=== PATIENT | male | born 1945 | race Caucasian/White ===

== ENCOUNTER 2019-02-01 15:07 | Emergency (ER) | payer MEDICARE, MEDICAID ==
[~2019-02-01] VITALS: Ht 172.7 cm; Wt 87.1 kg
[~2019-02-01 15:07] MED LIST: UNABLE TO RECALL MED
[2019-02-01 15:12] VITALS: BP 110/56
[2019-02-01] MEDS ORDERED: [UNRECOGNIZED DRUG - OTHER] PO (15:25)
[2019-02-01] MEDS ORDERED: GEMF600T5 PO (15:25)
[2019-02-01] MEDS ORDERED: LINA5TAB PO (15:25)
[2019-02-01] MEDS ORDERED: METF-440 PO (15:25)
[2019-02-01] MEDS ORDERED: METO-356 PO (15:25)
[2019-02-01] MEDS ORDERED: LOSA25TA27 PO (15:25)
[2019-02-01] MEDS ORDERED: RANO500T3 PO (15:25)
[2019-02-01] MEDS ORDERED: RANO500T5 PO (15:25)
[2019-02-01] MEDS ORDERED: GABA-532 PO (15:25)
== END 2019-02-01 15:38 | disposition home or self-care (01) ==
LOC: ER 15:11
DX: D17.22 Benign lipomatous neoplasm of skin and subcutaneous tissue of left arm (principal); I10 Essential (primary) hypertension; E11.9 Type 2 diabetes mellitus without complications; E78.5 Hyperlipidemia, unspecified; E78.00 Pure hypercholesterolemia, unspecified

== ENCOUNTER 2020-06-23 14:37 | Emergency (ER) | payer MEDICARE, OTHER ==
[~2020-06-23] VITALS: Ht 172.7 cm; Wt 80.7 kg
[~2020-06-23 14:37] MED LIST changes: +GABA-532 PO; +GEMF600T90 PO; +LINA5TAB PO; +LOSA25TA27 PO; +METF-440 PO; +METO25TA4 PO; +RANO500T3 PO; +RANO500T6 PO; -UNABLE TO RECALL MED; +[UNRECOGNIZED DRUG - OTHER] PO
[2020-06-23] MEDS ORDERED: XTANDI PO (14:44)
[2020-06-23] MEDS ORDERED: ROSU40TA23 PO (14:44)
[2020-06-23 15:03] VITALS: BP 131/84
[2020-06-23] MEDS ORDERED: FLUORESCEIN SODIUM OPHTH 1 EA STRIP ONE (15:30)
[2020-06-23] MEDS ORDERED: POLY10DR OP (15:58)
== END 2020-06-23 16:48 | disposition home or self-care (01) ==
LOC: ER 14:40
DX: H11.32 Conjunctival hemorrhage, left eye (principal); I10 Essential (primary) hypertension; E78.5 Hyperlipidemia, unspecified; E11.9 Type 2 diabetes mellitus without complications; E78.00 Pure hypercholesterolemia, unspecified; Z79.84 Long term (current) use of oral hypoglycemic drugs; Z79.899 Other long term (current) drug therapy
CPT/HCPCS: 99283; J7050

== ENCOUNTER 2020-07-19 11:03 | Inpatient (IN) | payer MEDICARE, OTHER ==
[~2020-07-19] VITALS: Ht 172.7 cm; Wt 80.7 kg
[~2020-07-19 11:03] MED LIST changes: +POLY10DR OP; +ROSU40TA23 PO; +XTANDI PO; -[UNRECOGNIZED DRUG - OTHER] PO
--- NOTE | 2020-07-19 11:15 | NUR ---
DENTON FROM HOME C/O L HIP PAIN S/P GLF LAST FRIDAY. PT AAOX3, VSS. RR EVEN & UNLABORED. DENIES CP, SOB, DIZZINESS, N/V, MARSHALL AT THIS TIME. PT SEEN & EVAL'D BY DR. MARIE. WILL CONT TO MONITOR.
--- NOTE | 2020-07-19 11:30 | NUR ---
RADIOLOGY AT BEDSIDE FOR L HIP/L FEMUR XRAY.
[2020-07-19 13:22] LABS: BASOPHILS # (AUTO) 0.1 /CMM (0.0-0.2); BASOPHILS % (AUTO) 0.8 % (0.0-2.0); EOSINOPHILS % (AUTO) 1.7 % (0.0-6.0); HEMATOCRIT 38 % (39-51); HEMOGLOBIN 12.9 g/dL (13.5-17.5); LYMPHOCYTES # (AUTO) 0.4 /CMM (0.8-4.8); LYMPHOCYTES % (AUTO) 5.4 % (20.0-44.0); MEAN CORPUSCULAR HGB CONC 34 g/dl (31.0-36.0); MEAN CORPUSCULAR VOLUME 86 fL (80-96); MONOCYTES # (AUTO) 0.5 /CMM (0.1-1.30); MONOCYTES % (AUTO) 6.4 % (2.0-12.0); NEUTROPHILS # (AUTO) 7.1 /CMM (1.8-8.9); NEUTROPHILS % (AUTO) 85.7 % (43.0-81.0); PLATELET COUNT (AUTO) 217 /CMM (150-450); RED BLOOD CELL COUNT(AUTO) 4.45 MIL/uL (4.5-6.0); WHITE BLOOD COUNT (AUTO) 8.3 K/uL (4.3-11.0)
[2020-07-19 13:35] LABS: CALCIUM, SERUM 9.6 mg/dL (8.5-10.1); CARBON DIOXIDE 25 mmol/L (21-32); CHLORIDE 107 mmol/L (98-107); CREATININE 1.9 mg/dL (0.6-1.3); GLUCOSE 95 mg/dL (74-106); POTASSIUM 4.1 mmol/L (3.5-5.1); SODIUM SERUM 144 mmol/L (136-145); UREA NITROGEN, BLOOD 31 mg/dL (7-18)
[2020-07-19 13:40] LABS: ALANINE AMINOTRANSFERASE 21 U/L (12-78); ALKALINE PHOSPHATASE 65 U/L (46-116); ASPARTATE AMINOTRANSFERASE 34 U/L (15-37); BILIRUBIN,TOTAL 1.2 mg/dL (0.2-1.0); TOTAL PROTEIN, SERUM 7.4 g/dL (6.4-8.2)
[2020-07-19] MEDS ORDERED: ONDANSETRON HCL/PF 4 MG/2 ML VIAL ONE (13:52)
[2020-07-19] MEDS ORDERED: MORPHINE SULFATE INJ 2 MG/ML DISP.SYRIN ONE (13:53)
[2020-07-19] MEDS ORDERED: MORPHINE SULFATE INJ 2 MG/ML DISP.SYRIN IV ONE (14:00)
[2020-07-19] MEDS ORDERED: ONDANSETRON HCL/PF 4 MG/2 ML VIAL IV ONE (14:00)
--- NOTE | 2020-07-19 14:04 | NUR ---
RADIOLOGY AT BEDSIDE FOR CHEST XRAY.
--- NOTE | 2020-07-19 14:52 | NUR ---
paged ortho dr chatterjee. 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
[2020-07-19] MEDS ORDERED: MAGNESIUM HYDROXIDE 30 ML UDC PO PRN (15:00)
[2020-07-19] MEDS ORDERED: ONDANSETRON HCL/PF 4 MG/2 ML VIAL IVP PRN (15:00)
[2020-07-19] MEDS ORDERED: Z GUARD REMEDY 2 OZ OINT TP PRN (15:00)
[2020-07-19] MEDS ORDERED: ACETAMINOPHEN 325 MG TABLET PO PRN (15:00)
[2020-07-19] MEDS ORDERED: HYDROCODONE/APAP 5/325MG TABLET PO PRN (15:00)
[2020-07-19] MEDS ORDERED: ZOLPIDEM TARTRATE 5 MG TABLET PO PRN (15:00)
[2020-07-19] MEDS ORDERED: MAG HYDROX/AL HYDROX/SIMETH 30 ML UDC PO PRN (15:00)
[2020-07-19] MEDS ORDERED: MORPHINE SULFATE INJ 2 MG/ML DISP.SYRIN IV PRN (15:00)
[2020-07-19] MEDS ORDERED: IV 1/2NS 1000 ML 1,000 ML IV PRN (15:00)
--- NOTE | 2020-07-19 15:03 | NUR ---
PT. STATED HE RECEIVED A SECOND SHOT OF COVID VACCINE ON July
--- NOTE | 2020-07-19 15:57 | NUR ---
CALLED DR. ESCOBAR FOR ORTHO CONSULT, SPOKE TO DR. LARSON.
--- NOTE | 2020-07-19 16:14 | NUR ---
REPORT GIVEN TO ELLA CONLEY FOR SARAH.
--- NOTE | 2020-07-19 16:30 | NUR ---
MS ADMITTING NOTES Received report from ER at 1615. Patient awake, A/Ox4 when received. Patient has a L AC IV. Patient oriented to Anupam adam RN, unit, room, bed, and unit policies regarding patient care and visiting hours. Safety measures in place: call light within reach, bed in lowest position, bed locked, and encouraged patient to call if they need something. All questions and concerns addressed, patient verbalized understanding.
[2020-07-19] MEDS: RANOLAZINE 500 MG TAB.ER.12H PO SCH (17:44)
--- NOTE | 2020-07-19 19:00 | NUR ---
MS CHANGE OF SHIFT NOTES Patient in bed resting, A/O x4. Patient no c/o of pain, discomfort, distress. Breathing unlabored and even. 1/2 NS running at 75 mL/hr. Safety measures in place, call light within reach, bed locked and in lowest position, encouraged patient to call for help and do not get up by himself. Endorsed to overnight cashier nurse.
[2020-07-19] MEDS: XTANDI 40 MG PO SCH (19:28)
--- NOTE | 2020-07-19 19:40 | NUR ---
MS RN NOTES RECEIVED ON BED A/O X4, NO SOB,S/P FALL AND SUSTAINED LEFT HIP FRACTURE,PAIN TOLERABLE AT THE MOMENT,AWAITING SURGICAL INTERVENTION.IVF 1/2 NS AT 75ML/HR RATE,SITE PATENT ON LEFT AC.CALL LIGHT IN REACH,NEEDS ANTICIPATED.
[2020-07-19 20:00] VITALS: BP 125/75
[2020-07-20 06:28] LABS: BASOPHILS % (AUTO) 0.5 % (0.0-2.0); EOSINOPHILS % (AUTO) 2.1 % (0.0-6.0); HEMATOCRIT 34 % (39-51); HEMOGLOBIN 11.6 g/dL (13.5-17.5); LYMPHOCYTES # (AUTO) 0.4 /CMM (0.8-4.8); MEAN CORPUSCULAR HGB CONC 35 g/dl (31.0-36.0); MEAN CORPUSCULAR VOLUME 84 fL (80-96); MONOCYTES # (AUTO) 0.6 /CMM (0.1-1.30); MONOCYTES % (AUTO) 7.1 % (2.0-12.0); NEUTROPHILS # (AUTO) 7.6 /CMM (1.8-8.9); NEUTROPHILS % (AUTO) 85.3 % (43.0-81.0); PLATELET COUNT (AUTO) 201 /CMM (150-450); RED BLOOD CELL COUNT(AUTO) 4.02 MIL/uL (4.5-6.0); WHITE BLOOD COUNT (AUTO) 8.9 K/uL (4.3-11.0)
[2020-07-20 06:56] LABS: ALANINE AMINOTRANSFERASE 11 U/L (12-78); ALBUMIN 3.2 g/dL (3.4-5.0); ALKALINE PHOSPHATASE 57 U/L (46-116); ASPARTATE AMINOTRANSFERASE 20 U/L (15-37); BILIRUBIN,TOTAL 0.9 mg/dL (0.2-1.0); CALCIUM, SERUM 8.8 mg/dL (8.5-10.1); CARBON DIOXIDE 23 mmol/L (21-32); CHLORIDE 106 mmol/L (98-107); CHOLESTEROL 105 mg/dL (<200); CREATININE 1.7 mg/dL (0.6-1.3); GLUCOSE 111 mg/dL (74-106); HDL CHOLESTEROL 62 mg/dL (40-60); LDL 31 mg/dL (0-99); MAGNESIUM 2.2 mg/dL (1.8-2.4); PHOSPHORUS 3.4 mg/dL (2.5-4.9); POTASSIUM 4.2 mmol/L (3.5-5.1); SODIUM SERUM 141 mmol/L (136-145); TOTAL PROTEIN, SERUM 6.4 g/dL (6.4-8.2); TRIGLYCERIDES 82 mg/dL (30-150); UREA NITROGEN, BLOOD 33 mg/dL (7-18)
--- NOTE | 2020-07-20 07:25 | NUR ---
MS RN OPENING NOTE RECEIVED PATIENT IN BED. A/O X4. ON ROOM AIR, NO SOB NOTED. IN NO APPARENT DISTRESS. PT IS ON NPO FOR UPCOMING PROCEDURE. CONSENT SIGNED. IV ACCESS ON L AC, INTACT, 1/2 NS RUNNING @ 75 ML/HR. SAFETY MEASURES MAINTAINED. BED IN LOWEST POSITION, BRAKES LOCKED. SIDE RAILS UP X2. CALL LIGHT WITHIN REACH. WILL CONTINUE PLAN OF CARE.
--- NOTE | 2020-07-20 07:30 | NUR ---
MS RN NOTES ASLEEP THRU OUT SHIFT,PAIN TOLERABLE,DIDNT ASKED FOR PAIN MEDICINE.NPO POST MIDNIGHT FOR FOR LEFT HIP ARTHROPLASTY AT 1500 SCHEDULED.CONSENT SIGNED BY PATIENT,CALL LIGHT IN REACH,NEEDS ATTENDED.ENDORSED TO DAY NURSE ZOIE CONLEY FOR SARAH.
[2020-07-20 08:00] VITALS: BP 162/80
[2020-07-20] MEDS: ATORVASTATIN 10 MG TABLET PO SCH (08:13)
[2020-07-20] MEDS: LOSARTAN POTASSIUM 25 MG TABLET PO SCH (08:13)
[2020-07-20] MEDS: LINAGLIPTIN 5 MG TABLET PO SCH (08:14)
[2020-07-20] MEDS: GEMFIBROZIL 600 MG TABLET PO SCH (08:14)
[2020-07-20] MEDS: METOPROLOL SUCCINATE 25 MG TAB.SR.24H PO SCH (08:14)
[2020-07-20] MEDS: GABAPENTIN 100 MG CAPSULE PO SCH (08:14)
[2020-07-20] MEDS: RANOLAZINE 500 MG TAB.ER.12H PO SCH ×2 (08:14→18:48)
--- NOTE | 2020-07-20 15:15 | NUR ---
MS RN NOTE PATIENT WAS BROUGHT DOWN TO OR FOR SURGERY
[2020-07-20] MEDS ORDERED: ROCURONIUM BROMIDE 50 MG/5 ML ONE (15:22)
[2020-07-20] MEDS ORDERED: FENTANYL PF 100MCG/2ML AMPUL ONE (15:22)
[2020-07-20] MEDS ORDERED: BACITRACIN 50000 UNITS/VIAL ONE (15:25)
[2020-07-20] MEDS ORDERED: ANESTHESIA TRAY IN PYXIS 1 EA TRAY MC ONE (15:25)
[2020-07-20] MEDS ORDERED: BUPIVACAINE 0.25% 75 MG/30 ML VIAL ONE (15:25)
[2020-07-20] MEDS ORDERED: BUPIVACAINE 0.5 % PF 150 MG/30 ML VIAL ONE (15:25)
[2020-07-20] MEDS ORDERED: VANCOMYCIN 1 GM VIAL ONE (16:55)
[2020-07-20] MEDS ORDERED: MORPHINE SULFATE INJ 4 MG/ML DISP.SYRIN IV PRN (18:00)
[2020-07-20] MEDS ORDERED: HYDROCODONE/APAP 10/325MG TABLET PO PRN (18:00)
--- NOTE | 2020-07-20 18:34 | NUR ---
MS RN NOTE PATIENT IS BACK FROM SURGERY. RECEIVED POST OP REPORT FROM JERI CAMACHO BP 163/71 ND 68 RR 15 T 98.5 SA02 94% PATIENT DENIES ANY PAIN OR DISCOMFORT AT THIS TIME. 02 NC @ 2 LPM. ABDUCTOR PILLOWS IN BETWEEN LEGS. DR. ESCOBAR ORDERED TO RESUME REGULAR DIET, PT EVAL IN AM, BOTH LEGS SHOULD BE LEVELED, WEIGHT BEARING TOLERATED ON THE LEFT LEG. SAFETY MEASURES MAINTAINED. BED IN LOWEST POSITION, BRAKES LOCKED. SIDE RAILS UP X2. CALL LIGHT WITHIN REACH. WILL ENDORSE CONTINUITY OF CARE TO ONCOMING SHIFT.
[2020-07-20] MEDS: XTANDI 40 MG PO SCH (18:48)
[2020-07-20] MEDS: IV 0.45% NS W/20 MEQ KCL 1L IV PRN (18:53)
[2020-07-20 20:00] VITALS: BP 161/69
--- NOTE | 2020-07-20 20:00 | NUR ---
RN NOTES Received pt. awake on bed, S/P bipolar left hip replacement, with abduction pillow, left hip dressing dry and intact denies pain, no sob, GF/c draining clear yellow urine, call light within reach, siderailsupx2 continue to monitor
[2020-07-20] MEDS: ANCEF 1 GM/50 ML D5W IV SCH (21:00)
[2020-07-21] MEDS: ANCEF 1 GM/50 ML D5W IV SCH ×2 (05:06→13:22)
[2020-07-21] MEDS: IV 0.45% NS W/20 MEQ KCL 1L IV PRN (05:55)
--- NOTE | 2020-07-21 06:41 | NUR ---
RN NOTES awake, morning care rendered, denies pain, no sob, call light within reach, siderailsupx2, pt. needs attended
--- NOTE | 2020-07-21 07:34 | NUR ---
MS RN OPENING NOTES RECEIVED PATIENT IN BED AWAKE, A/O X4. ABLE TO VERBALIZED NEEDS, C/O OF DISCOMFORTS HAVING THE HENNING CATHETER ON, INFORMED HIM THAT WE WILL REMOVED IT TODAY PER MD ORDER. LEFT HIP DRESSING C/D/I. ABDUCTION PILLOW ON LOWER EXTREMITIES IN PLACE. ON ROOM AIR, BREATHING EVEN AND UNLABORED. IV ACCESS ON LAC G#20 INTACT WITH IVF OF 1/2 NS + KCL 20MEQ RUNNING @ 75 ML/HR, NO S/S OF INFILTRATIONS AT SITE NOTED. SAFETY MEASURES IN PLACE: BED IN LOWEST POSITION, BRAKES LOCKED, SIDE RAILS UP X2 AND CALL LIGHT WITHIN REACH. WILL CONTINUE TO MONITOR PT ACCORDINGLY..
[2020-07-21 08:17] VITALS: BP 138/68
[2020-07-21] MEDS: LINAGLIPTIN 5 MG TABLET PO SCH (09:30)
[2020-07-21] MEDS: METOPROLOL SUCCINATE 25 MG TAB.SR.24H PO SCH (09:30)
[2020-07-21] MEDS: GEMFIBROZIL 600 MG TABLET PO SCH (09:30)
[2020-07-21] MEDS: RANOLAZINE 500 MG TAB.ER.12H PO SCH ×2 (09:30→17:15)
[2020-07-21] MEDS: LOSARTAN POTASSIUM 25 MG TABLET PO SCH (09:31)
[2020-07-21] MEDS: GABAPENTIN 100 MG CAPSULE PO SCH (09:32)
[2020-07-21 09:39] LABS: BASOPHILS % (AUTO) 0.4 % (0.0-2.0); EOSINOPHILS % (AUTO) 0.3 % (0.0-6.0); HEMATOCRIT 29 % (39-51); HEMOGLOBIN 10.2 g/dL (13.5-17.5); LYMPHOCYTES # (AUTO) 0.4 /CMM (0.8-4.8); LYMPHOCYTES % (AUTO) 4.3 % (20.0-44.0); MEAN CORPUSCULAR HGB CONC 35 g/dl (31.0-36.0); MEAN CORPUSCULAR VOLUME 84 fL (80-96); MONOCYTES # (AUTO) 0.8 /CMM (0.1-1.30); MONOCYTES % (AUTO) 8.3 % (2.0-12.0); NEUTROPHILS # (AUTO) 8.6 /CMM (1.8-8.9); NEUTROPHILS % (AUTO) 86.7 % (43.0-81.0); PLATELET COUNT (AUTO) 214 /CMM (150-450); RED BLOOD CELL COUNT(AUTO) 3.47 MIL/uL (4.5-6.0); WHITE BLOOD COUNT (AUTO) 9.9 K/uL (4.3-11.0)
--- NOTE | 2020-07-21 09:40 | NUR ---
RN NOTES HENNING CATHETER REMOVED WITH EASED PER MD ORDER. NO HEMATURIA NOTED. 250ML CLEAR YELLOW URINE OUTPUT NOTED. URINAL PROVIDED AND PLACED AT PT'S BEDSIDE. WILL CONTINUE TO MONITOR.
[2020-07-21 09:46] LABS: ALANINE AMINOTRANSFERASE 13 U/L (12-78); ALBUMIN 2.8 g/dL (3.4-5.0); ALKALINE PHOSPHATASE 51 U/L (46-116); ASPARTATE AMINOTRANSFERASE 23 U/L (15-37); BILIRUBIN,TOTAL 0.7 mg/dL (0.2-1.0); CALCIUM, SERUM 8.5 mg/dL (8.5-10.1); CARBON DIOXIDE 26 mmol/L (21-32); CHLORIDE 105 mmol/L (98-107); CREATININE 1.5 mg/dL (0.6-1.3); GLUCOSE 138 mg/dL (74-106); MAGNESIUM 1.9 mg/dL (1.8-2.4); PHOSPHORUS 3.2 mg/dL (2.5-4.9); POTASSIUM 4.3 mmol/L (3.5-5.1); SODIUM SERUM 138 mmol/L (136-145); TOTAL PROTEIN, SERUM 5.8 g/dL (6.4-8.2); UREA NITROGEN, BLOOD 23 mg/dL (7-18)
[2020-07-21] MEDS: ATORVASTATIN 10 MG TABLET PO SCH (09:51)
[2020-07-21] MEDS: ENOXAPARIN SODIUM 40 MG/0.4 ML DISP.SYRIN SQ SCH (09:51)
[2020-07-21 15:53] VITALS: BP 124/65
--- NOTE | 2020-07-21 16:00 | NUR ---
RN NOTES PT NOTED WITH ELEVATED TEMP OF 101.1F, PRN TYLENOL 650MG PO GIVEN AND COOLING MEASURES IMPLEMENTED. WILL CONTINUE TO MONITOR PT.
[2020-07-21] MEDS: XTANDI 40 MG PO SCH (17:15)
--- NOTE | 2020-07-21 18:24 | NUR ---
RN NOTES PT'S LATEST TEMP CHECKED AND WAS 97.9F. WILL CONTINUE TO MONITOR.
--- NOTE | 2020-07-21 18:33 | NUR ---
MS RN CLOSING NOTES PATIENT IN BED AWAKE AND WATCHING TV AT THIS TIME. A/O X4. ABLE TO MAKE NEEDS KNOWN. DRESSING ON LEFT HIP C/D/I. ON ROOM AIR, TOLERATING WELL WITH NO SOB NOTED DURING SHIFT. IV ACCESS ON LAC G#20 INTACT, PATENT AND FLUSHES WELL, NO S/S OF INFILTRATIONS AT SITE NOTED. ALL NEEDS AND CARE ATTENDED WELL. ALL SAFETY MEASURES KEPT IN PLACE: BED IN LOWEST LOCKED POSITION, SIDE RAILS UP X2, CALL LIGHT WITHIN EASY REACH AND BED ALARM ON. WILL ENDORSE SARAH TO BORING MACHINE OPERATOR DOUBLE END NURSE.
[2020-07-21 20:00] VITALS: BP 124/47
--- NOTE | 2020-07-21 20:03 | NUR ---
RN MS opening notes Received Pt from morning nurse. Pt is laying in bed comfortably watching TV. Pt is alert and orientedX4. Respiration is normal. No SOB. No S/S of distress noted. IV site at RAC# 18 is clean, intact, flushes well and SL. L hip dressing is intact, clean and dry. Safety precautions is maintained. Bed at low position, brakes locked, side rails upX2, urinal at the bed side and call light is within reach. Will continue to monitor.
[2020-07-21 21:23] VITALS: BP 129/47
--- NOTE | 2020-07-22 | NUR ---
RN notes Pt refused IV fluid potassium chloride 20 meq in IV 0.45% NS. Explained risks and benefits. Offered several times. Pt keep refusing. Will continue to monitor.
--- NOTE | 2020-07-22 06:45 | NUR ---
RN MS closing notes Pt is resting in bed comfortably. Pt is alert and orientedX4. Respiration is normal. No SOB. No S/S of distress noted. VS is stable. Afebrile. IV site at RAC# 18 is clean, intact, flushes well and SL. L hip dressing is intact, clean and dry. Kept Pt clean, dry and comfortable. All needs met and attended. Safety precautions is maintained. Bed at low position, brakes locked, side rails upX2, urinal at the bed side and call light is within reach. Will endorse to morning nurse for SARAH.
[2020-07-22 08:00] VITALS: BP 153/68
[2020-07-22] MEDS: RANOLAZINE 500 MG TAB.ER.12H PO SCH (09:41)
[2020-07-22] MEDS: GABAPENTIN 100 MG CAPSULE PO SCH (09:41)
[2020-07-22] MEDS: GEMFIBROZIL 600 MG TABLET PO SCH (09:41)
[2020-07-22] MEDS: LINAGLIPTIN 5 MG TABLET PO SCH (09:42)
[2020-07-22] MEDS: LOSARTAN POTASSIUM 25 MG TABLET PO SCH (09:42)
[2020-07-22 09:43] VITALS: BP 153/68
[2020-07-22] MEDS: METOPROLOL SUCCINATE 25 MG TAB.SR.24H PO SCH (09:43)
[2020-07-22] MEDS: ENOXAPARIN SODIUM 40 MG/0.4 ML DISP.SYRIN SQ SCH (09:43)
[2020-07-22] MEDS: ATORVASTATIN 10 MG TABLET PO SCH (09:46)
[2020-07-22] MEDS ORDERED: IV NS 0.9% 1,000 ML IV PRN (10:00)
--- NOTE | 2020-07-22 15:55 | NUR ---
Pt left in stable condition via gurney with paramedics. Vital signs stable, no acute distress noted. Pt with no skin breakdown, surgical incision with c/d/i dressing. Pt given discharge instructions, verbalized understanding. Pt's belongings with pt and medications picked up from pharmacy and given to pt. Pt's IV removed and applied pressure dressing. Report given to JARVIS Juarez from [facility], pt going to Room 325.
== END 2020-07-22 16:00 | DRG 521 ==
LOC: ER 11:10 → MED 16:11
PROVIDERS: ADMIT Internal Medicine; ATTEND Internal Medicine
PROC: 0SRB0JZ Replacement of Left Hip Joint with Synthetic Substitute, Open Approach (ICD-10-PCS; principal; 2020-07-20)
DX: S72.012A Unspecified intracapsular fracture of left femur, initial encounter for closed fracture (principal); N17.0 Acute kidney failure with tubular necrosis; W01.0XXA Fall on same level from slipping, tripping and stumbling without subsequent striking against object, initial encounter; E11.9 Type 2 diabetes mellitus without complications; Y92.009 Unspecified place in unspecified non-institutional (private) residence as the place of occurrence of the external cause; Z85.46 Personal history of malignant neoplasm of prostate; I10 Essential (primary) hypertension; E78.5 Hyperlipidemia, unspecified; E78.00 Pure hypercholesterolemia, unspecified; Z79.84 Long term (current) use of oral hypoglycemic drugs; Z79.899 Other long term (current) drug therapy; I27.20 Pulmonary hypertension, unspecified; N13.9 Obstructive and reflux uropathy, unspecified; M16.10 Unilateral primary osteoarthritis, unspecified hip; M85.80 Other specified disorders of bone density and structure, unspecified site
CPT/HCPCS: 36415; 71045-TC; 73502; 73552; 73700-TC; 76770-TC; 80053-TC; 80061-TC; 82962-TC; 83735-TC; 84100-TC; 84484-TC; 85025-TC; 85610-TC; 85730-TC; 87081-TC; 88305-TC; 88311-TC; 93307-TC; 97110-TC; 97112-TC; 97116-TC; 97530-TC; A4217; A6209; C1776; C9803; G0378; J0690; J1100; J1650; J2270; J2405; J2704; J3010; J3370; J3480; J3490; J7060

== ENCOUNTER 2021-06-02 12:26 | Inpatient (IN) | payer MEDICARE, OTHER ==
[~2021-06-02] VITALS: Ht 175.3 cm; Wt 72.1 kg
[~2021-06-02 12:26] MED LIST changes: -POLY10DR OP; -RANO500T6 PO
--- NOTE | 2021-06-02 12:41 | NUR ---
DENTON FROM HOME, CONFUSION NOTED BY 1 HOUR AGO. HYPERTENSIVE INPATIENT CARE MANAGER RN. THE PATIENT IS ALERT AND ORIENTED X2. THE PATIENT HAS CLEAR SPEECH. DENIES PAIN PAIN. IN ROOM AIR AND DENIES SOB. RESPIRATION REGULAR AND UNLABORED. ATTACHED TO THE MONITOR. WILL CONTINUE TO MONITOR THE PATIENT
--- NOTE | 2021-06-02 12:42 | NUR ---
IV LINE ESTABLISHED BLOOD DRAWN AND SENT TO LAB.
--- NOTE | 2021-06-02 12:45 | NUR ---
AT BEDSIDE FOR EVAL.
[2021-06-02] MEDS ORDERED: hydrALAZINE HCL IV 20 MG VIAL ONE (12:54)
[2021-06-02] MEDS ORDERED: hydrALAZINE HCL IV 20 MG VIAL IV ONE (13:00)
--- NOTE | 2021-06-02 13:00 | NUR ---
THE PATIENT IS TAKEN TO CT [facility]IA [facility]
[2021-06-02 13:08] LABS: BASOPHILS % (AUTO) 0.6 % (0.0-2.0); EOSINOPHILS % (AUTO) 0.5 % (0.0-6.0); HEMATOCRIT 35 % (39-51); HEMOGLOBIN 12.1 g/dL (13.5-17.5); LYMPHOCYTES # (AUTO) 0.5 K/uL (0.8-4.8); LYMPHOCYTES % (AUTO) 8.3 % (20.0-44.0); MEAN CORPUSCULAR HGB CONC 34 g/dl (31.0-36.0); MEAN CORPUSCULAR VOLUME 82 fL (80-96); MONOCYTES # (AUTO) 0.3 K/uL (0.1-1.30); MONOCYTES % (AUTO) 5.1 % (2.0-12.0); NEUTROPHILS # (AUTO) 5.3 K/uL (1.8-8.9); NEUTROPHILS % (AUTO) 85.5 % (43.0-81.0); PLATELET COUNT (AUTO) 289 K/uL (150-450); RED BLOOD CELL COUNT(AUTO) 4.28 MIL/uL (4.5-6.0); WHITE BLOOD COUNT (AUTO) 6.2 K/uL (4.3-11.0)
--- NOTE | 2021-06-02 13:19 | NUR ---
THE PATIENT IS BACK FROM CT VIA [facility]
[2021-06-02 13:26] LABS: CALCIUM, SERUM 8.8 mg/dL (8.5-10.1); CARBON DIOXIDE 28 mmol/L (21-32); CHLORIDE 102 mmol/L (98-107); CREATININE 1.5 mg/dL (0.6-1.3); GLUCOSE 95 mg/dL (74-106); POTASSIUM 2.9 mmol/L (3.5-5.1); SODIUM SERUM 140 mmol/L (136-145); UREA NITROGEN, BLOOD 12 mg/dL (7-18)
--- NOTE | 2021-06-02 13:27 | NUR ---
COVID ANTIGEN SWAB DONE AND SENT TO THE LAB
--- NOTE | 2021-06-02 13:45 | NUR ---
MADE DR TORIBIO AWARE OF BP 215/99 AND HR 76. WAITING FOR ORDERS.
--- NOTE | 2021-06-02 13:51 | NUR ---
PAGED [facility].
--- NOTE | 2021-06-02 13:56 | NUR ---
CALLED NURSING SUP FOR ICU BED.
[2021-06-02] MEDS ORDERED: LABETALOL 20 MG/4 ML VIAL IV ONE (14:00)
[2021-06-02] MEDS ORDERED: ONDANSETRON HCL/PF 4 MG/2 ML VIAL IVP PRN (14:00)
[2021-06-02] MEDS ORDERED: POTASSIUM CHLORIDE 20 MEQ TAB.PRT.SR PO ONE ×2 (14:00→14:27)
[2021-06-02] MEDS ORDERED: MORPHINE SULFATE INJ 2 MG/ML DISP.SYRIN IV PRN (14:00)
[2021-06-02] MEDS ORDERED: DEXTROSE 50%-WATER 50 ML DISP.SYRIN IV PRN (14:00)
[2021-06-02] MEDS ORDERED: ACETAMINOPHEN 325 MG TABLET PO PRN (14:00)
[2021-06-02] MEDS ORDERED: INSULIN REGULAR, HUMAN 100 UNIT/ML 3 ML VIAL SQ PRN (14:00)
[2021-06-02] MEDS ORDERED: NICARDIPINE HCL 40 MG in IV NS 0.9% 184 ML IV PRN (14:00)
[2021-06-02] MEDS ORDERED: *INSULIN REGULAR(HUMULIN R)HUM 100 UNIT/ML VIAL SQ PRN (14:00)
--- NOTE | 2021-06-02 14:03 | NUR ---
URINE COLLECTED AND SENT TO THE LAB
[2021-06-02] MEDS ORDERED: HEPARIN SODIUM, PORCINE 5000 UNITS/1 ML VIAL ONE (14:27)
[2021-06-02] MEDS ORDERED: POTASSIUM CL. PREMIX PERIPHER. 100 ML ONE (14:27)
[2021-06-02 14:34] LABS: BILIRUBIN,URINE NEGATIVE (NEGATIVE); COLOR,URINE YELLOW (YELLOW); LEUKOCYTE ESTERASE ,URINE NEGATIVE (NEGATIVE); NITRITE, URINE NEGATIVE (NEGATIVE); PROTEIN,URINE 100 mg/dl (NEGATIVE); UGLUCOSE NEGATIVE (NEGATIVE); UROBILINOGEN,URINE 0.2 EU/dL (0.2)
[2021-06-02] MEDS: BLOOD SUGAR DIAGNOSTIC 1 EACH STRIP VI SCH ×3 (14:41→22:46)
[2021-06-02] MEDS: POTASSIUM CL. PREMIX PERIPHER. 50 ML IV SCH ×2 (14:50→16:18)
[2021-06-02] MEDS: HEPARIN SODIUM, PORCINE 5000 UNITS/1 ML VIAL SQ SCH ×2 (14:51→21:00)
[2021-06-02 14:59] LABS: BACTERIA,URINE Rare /HPF (None Seen); HYALINE CASTS, URINE 0-2 /LPF (None Seen); RBC,URINE 0-2 /HPF (0-2); SQUAMOUS EPITHELIAL CELL,UR Few /HPF (None Seen); WBC,URINE 0-2 /HPF (0-3)
--- NOTE | 2021-06-02 15:28 | NUR ---
UNABLE TO CONTACT DR STEPHENS SO DR MONTEMAYOR IS MADE AWARE OF CHANGE IN CONDITION.
--- NOTE | 2021-06-02 15:28 | NUR ---
THE PATIENT IS NOTED TO BE ALTERED. NOT RESPONDING TO VERBAL OR TACTILE STIMULI. RESPIRATION REGULAR AND UNLABORED. OXYGEN SATURATION ROOM AIR WNL. CARDENE DRIP INFUSING PER ORDER. DR MONTEMAYOR MADE AWARE.
--- NOTE | 2021-06-02 15:29 | NUR ---
DR STEPHENS MADE AWARE. PER DR STEPHENS TO ASK DR MONTEMAYOR FOR ORDERS.
--- NOTE | 2021-06-02 15:32 | NUR ---
THE PATIENT IS TAKEN TO CT [facility]IA [facility]
--- NOTE | 2021-06-02 15:42 | NUR ---
THE PATIENT IS BACK FROM CT VIA [facility]
--- NOTE | 2021-06-02 15:43 | NUR ---
DR STEPHENS AT THE BEDSIDE
--- NOTE | 2021-06-02 15:44 | NUR ---
THE PATIENT IS RESPONSIVE TO VERBAL STIMULI.
[2021-06-02 15:57] LABS: THYROID STIMULATING HORMONE 0.391 uIU/mL (0.358-3.74)
--- NOTE | 2021-06-02 16:15 | NUR ---
THE PATIENT IS VERBALLY RESPONSIVE. DENIES PAIN. IN ROOM AIR AND DENIES SOB. RESPIRATION REGULAR AND UNLABORED. ATTACHED TO THE MONITOR. DR STEPHENS STILL WITH THE PATIENT.
--- NOTE | 2021-06-02 16:20 | NUR ---
PER DR STEPHENS TO DISCONTINUE CARDENE DRIP. THE ORDER IS READ BACK, VERIFIED. NOTED AND CARRIED OUT. PER DR STEPHENS TO GIVE ORDERED PRN LABETALOL. MAY GIVE THE FIRST DOSE NOT PER DR STEPHENS.
--- NOTE | 2021-06-02 16:45 | NUR ---
DR STEPHENS MADE AWARE OF BP 134/[address] STEPHENS NO NEED TO GIVE LABETALOL AT THIS TIME.
[2021-06-02 17:21] LABS: BASOPHILS # (AUTO) 0.1 K/uL (0.0-0.2); BASOPHILS % (AUTO) 0.3 % (0.0-2.0); HEMATOCRIT 35 % (39-51); HEMOGLOBIN 12.1 g/dL (13.5-17.5); LYMPHOCYTES # (AUTO) 0.3 K/uL (0.8-4.8); LYMPHOCYTES % (AUTO) 1.9 % (20.0-44.0); MEAN CORPUSCULAR HGB CONC 35 g/dl (31.0-36.0); MEAN CORPUSCULAR VOLUME 82 fL (80-96); MONOCYTES # (AUTO) 0.6 K/uL (0.1-1.30); MONOCYTES % (AUTO) 3.6 % (2.0-12.0); NEUTROPHILS # (AUTO) 15.9 K/uL (1.8-8.9); NEUTROPHILS % (AUTO) 94.2 % (43.0-81.0); PLATELET COUNT (AUTO) 322 K/uL (150-450); RED BLOOD CELL COUNT(AUTO) 4.29 MIL/uL (4.5-6.0); WHITE BLOOD COUNT (AUTO) 16.9 K/uL (4.3-11.0)
--- NOTE | 2021-06-02 17:24 | NUR ---
WAITING FOR THE PHARMACY TO DELIVER KEPPRA. FOLLOW UP CALL IS MADE.
[2021-06-02] MEDS ORDERED: RANOLAZINE 500 MG TAB.ER.12H PO ONE (17:29)
[2021-06-02] MEDS ORDERED: METFORMIN 500 MG TABLET ONE (17:29)
[2021-06-02 17:31] LABS: CARBON DIOXIDE 26 mmol/L (21-32); CHLORIDE 102 mmol/L (98-107); CREATININE 1.5 mg/dL (0.6-1.3); GLUCOSE 142 mg/dL (74-106); SODIUM SERUM 140 mmol/L (136-145); UREA NITROGEN, BLOOD 14 mg/dL (7-18)
[2021-06-02] MEDS: RANOLAZINE 500 MG TAB.ER.12H PO SCH (17:34)
[2021-06-02] MEDS: METFORMIN 500 MG TABLET PO SCH (17:34)
--- NOTE | 2021-06-02 17:36 | NUR ---
BLOOD SUGAR 118. NO COVERAGE GIVE PER SLIDING SCALE ORDER.
[2021-06-02 17:38] LABS: ALANINE AMINOTRANSFERASE 14 U/L (12-78); ALKALINE PHOSPHATASE 112 U/L (46-116); ASPARTATE AMINOTRANSFERASE 14 U/L (15-37); BILIRUBIN,TOTAL 1.3 mg/dL (0.2-1.0); TOTAL PROTEIN, SERUM 7.2 g/dL (6.4-8.2)
[2021-06-02] MEDS: LEVETIRACETAM (500MG) 500 MG in IV NS 0.9% 100 ML IV SCH (17:54)
[2021-06-02] MEDS: LABETALOL 20 MG/4 ML VIAL IV PRN (17:55)
[2021-06-02] MEDS ORDERED: LABETALOL HCL IV 100MG VIAL ONE (17:56)
--- NOTE | 2021-06-02 19:23 | NUR ---
REPORT GIVEN TO NURSE JEWELL FOR SARAH
--- NOTE | 2021-06-02 19:30 | NUR ---
PROGRAM DIRECTOR/AIR PERSONALITYMARRIAGE PERFORMER NOTE RECEIVED PATIENT, ALERT/ORIENTED X 1, PT CONFUSED, RESTLESS, DOESN'T FOLLOW DIRECTIONS. PT STABLE ON RA, NO S/S OF DISTRESS OR SOB NOTED, BREATHING EVEN AND UNLABORED. BP ELEVATED 187/79, HR: 90, HOWEVER PATIENT RECEIVED PRN LABETALOL IN ER AND IT IS NOT DUE YET. PATIENT HAS BILATERAL ARM SKIN TEARS AND LEFT BUTTOCK BRUISE ON ADMISSION, PHOTOS TAKEN. IV ACCESS ON RIGHT AC #18 G INTACT AND FLUSHING WELL. DOCUMENTED PATIENT BELONGINGS AND PLACED IN CHART. SAFETY MEASURES IN PLACE: CALL LIGHT WITHIN REACH, SIDE RAILS UP X 3, BED LOCKED IN LOW POSITION, BED ALARM ON. Addendum: 06/03/21 at 0534 by HONORIO SALCEDO RN INCORRECT TIME, DISREGARD
--- NOTE | 2021-06-02 19:42 | NUR ---
PT SLEEPING COMOFORTABLY HOOKED UP TO MONITOR AND ALL V/S STABLE. BREATHING EVEN AND UNLABORED ON ROOM AIR.
--- NOTE | 2021-06-02 20:48 | NUR ---
REPORT GIVEN TO HONORIO FOR SARAH
--- NOTE | 2021-06-02 21:01 | NUR ---
PT TRANSPORTED TO ROOM 308-1 ON MEDICAL STAFF ASSISTANT PER ACLS PROTOCOL
--- NOTE | 2021-06-02 21:30 | NUR ---
THERAPY SITE COORDINATORNETWORK SUPPORT NOTE RECEIVED PATIENT, ALERT/ORIENTED X 1, PT CONFUSED, RESTLESS, DOESN'T FOLLOW DIRECTIONS. PT STABLE ON RA, NO S/S OF DISTRESS OR SOB NOTED, BREATHING EVEN AND UNLABORED. BP ELEVATED 187/79, HR: 90, HOWEVER PATIENT RECEIVED PRN LABETALOL IN ER AND IT IS NOT DUE YET. PATIENT HAS BILATERAL ARM SKIN TEARS AND LEFT BUTTOCK BRUISE ON ADMISSION, PHOTOS TAKEN. IV ACCESS ON RIGHT AC #18 G INTACT AND FLUSHING WELL. DOCUMENTED PATIENT BELONGINGS AND PLACED IN CHART. SAFETY MEASURES IN PLACE: CALL LIGHT WITHIN REACH, SIDE RAILS UP X 3, BED LOCKED IN LOW POSITION, BED ALARM ON.
--- NOTE | 2021-06-02 21:35 | NUR ---
FOUNDER CEO & PRESIDENT NOTE CALLED PATIENT'S AEROSPACE PHYSIOLOGICAL TECHNICIAN FROM [facility] . PER BANDAR SHE IS ROOMMATE/FRIEND, STATES PATIENT IN NOT COMPLIANT WITH HOME MEDS AND THAT PATIENT WILL BENEFIT FROM ASSISTED LIVING SINCE SHE IS NOT ABLE TO CARE FOR HIM. STATED THAT PATIENT HAS A DAUGHTER RUDY KIRBY AND BROTHER . WILL CALL DAUGHTER FOR CONSENT FOR MRI OF BRAIN WITHOUT CONTRAST
--- NOTE | 2021-06-02 22:00 | NUR ---
CLOCK SMITH NOTE PATIENT VERY RESTLESS AND REMOVING AERIAL PHOTOGRAPHER AND CLOTHING, DOESN'T FOLLOW DIRECTIONS. CALLED DR. VIDALES AND RECEIVED ORDER FOR BILATERAL WRIST RESTRAINTS
--- NOTE | 2021-06-02 22:00 | NUR ---
OIL DISTRIBUTOR TENDER NOTE CALLED PATIENT'S DAUGHTER RUDY KIRBY , UPDATED ON PT ADMISSION. RECEIVED PHONE CONSENT FROM DAUGHTER FOR BILATERAL WRIST RESTRAINTS AND FOR MRI OF BRAIN WITHOUT CONTRAST, CHARGE NURSE VINAY WITNESSED CONSENT
[2021-06-03] MEDS: LABETALOL 20 MG/4 ML VIAL IV PRN ×2 (00:23→05:15)
[2021-06-03 01:36] VITALS: BP 162/70
[2021-06-03 04:51] VITALS: BP 176/90
--- NOTE | 2021-06-03 05:32 | NUR ---
TEXTED DR. GRACIA FOR MRI APPROVAL.
[2021-06-03] MEDS ORDERED: LEVETIRACETAM (500MG) 500 MG/5 ML VIAL IV ONE (05:36)
[2021-06-03] MEDS: LEVETIRACETAM (500MG) 500 MG in IV NS 0.9% 100 ML IV SCH ×2 (05:58→16:20)
[2021-06-03 06:04] LABS: BASOPHILS % (AUTO) 0.3 % (0.0-2.0); EOSINOPHILS % (AUTO) 0.1 % (0.0-6.0); HEMATOCRIT 32 % (39-51); HEMOGLOBIN 11.2 g/dL (13.5-17.5); LYMPHOCYTES # (AUTO) 0.5 K/uL (0.8-4.8); LYMPHOCYTES % (AUTO) 4.9 % (20.0-44.0); MEAN CORPUSCULAR HGB CONC 35 g/dl (31.0-36.0); MEAN CORPUSCULAR VOLUME 82 fL (80-96); MONOCYTES # (AUTO) 0.9 K/uL (0.1-1.30); MONOCYTES % (AUTO) 7.7 % (2.0-12.0); NEUTROPHILS # (AUTO) 9.7 K/uL (1.8-8.9); PLATELET COUNT (AUTO) 264 K/uL (150-450); RED BLOOD CELL COUNT(AUTO) 3.87 MIL/uL (4.5-6.0); WHITE BLOOD COUNT (AUTO) 11.1 K/uL (4.3-11.0)
[2021-06-03 06:13] LABS: ALANINE AMINOTRANSFERASE 14 U/L (12-78); ALBUMIN 3.9 g/dL (3.4-5.0); ALKALINE PHOSPHATASE 103 U/L (46-116); ASPARTATE AMINOTRANSFERASE 18 U/L (15-37); BILIRUBIN,TOTAL 1.4 mg/dL (0.2-1.0); CALCIUM, SERUM 9.2 mg/dL (8.5-10.1); CARBON DIOXIDE 27 mmol/L (21-32); CHLORIDE 104 mmol/L (98-107); CREATININE 1.5 mg/dL (0.6-1.3); GLUCOSE 103 mg/dL (74-106); PHOSPHORUS 2.9 mg/dL (2.5-4.9); POTASSIUM 2.9 mmol/L (3.5-5.1); SODIUM SERUM 142 mmol/L (136-145); TOTAL PROTEIN, SERUM 6.9 g/dL (6.4-8.2); UREA NITROGEN, BLOOD 15 mg/dL (7-18)
--- NOTE | 2021-06-03 07:30 | NUR ---
PRINTING MACHINIST CLOSING NOTE PATIENT SLEEPING IN BED, EASILY AWAKENED, PT ALERT/ORIENTED X 1, CONFUSED AND RESTLESS THROUGHOUT SHIFT BUT MORE CALM THIS MORNING. PT STABLE ON RA, NO S/S OF DISTRESS OR SOB NOTED, BREATHING EVEN AND UNLABORED. EXTERNAL NUCLEAR SCIENTIST READING SINUS RHYTHM, HR: 65. BILATERAL WRIST RESTRAINTS ON PATIENT. IV ACCESS ON RIGHT AC INTACT AND FLUSHING WELL. SAFETY MEASURES IN PLACE: CALL LIGHT WITHIN REACH, SIDE RAILS UP X 3, BED LOCKED IN LOW POSITION, BED ALARM ON. ENDORSED TO DAYS SHIFT NURSE FOR CONTINUITY OF CARE
--- NOTE | 2021-06-03 07:35 | NUR ---
CASING TESTER OPENING NOTES RECEIVED PATIENT AWAKE, VERBALLY RESPONSIVE, A/O X2. NO SIGNS OF ACUTE DISTRESS NOTED. ON ROOM AIR, TOLERATING WELL, NO SOB NOTED. BREATHING EVEN AND UNLABORED. ON FRAMING AND HANGING WITH CURRENT READING OF NSR @ 84. DENIES ANY PAIN OR DISCOMFORT AT THIS TIME. IV ACCESS ON RAC #18G, INTACT AND PATENT, SL. SAFETY MEASURES IN PLACE. BED LOCKED AND IN LOWEST POSITION, BED ALARM ON, SR UP X2, CALL LIGHT PLACED WITHIN EASY REACH. WILL CONTINUE TO MONITOR.
[2021-06-03 08:00] VITALS: BP 175/81
[2021-06-03] MEDS ORDERED: LABETALOL 20 MG/4 ML VIAL IV PRN (08:00)
[2021-06-03] MEDS: BLOOD SUGAR DIAGNOSTIC 1 EACH STRIP VI SCH ×4 (08:05→21:50)
[2021-06-03] MEDS: POTASSIUM CL. PREMIX PERIPHER. 50 ML IV SCH ×4 (08:12→11:27)
[2021-06-03] MEDS ORDERED: GABAPENTIN 100 MG CAPSULE PO SCH (09:00)
[2021-06-03] MEDS: METFORMIN 500 MG TABLET PO SCH ×3 (09:02→16:56)
[2021-06-03] MEDS: GEMFIBROZIL 600 MG TABLET PO SCH (09:02)
[2021-06-03] MEDS: LINAGLIPTIN 5 MG TABLET PO SCH (09:03)
[2021-06-03] MEDS: RANOLAZINE 500 MG TAB.ER.12H PO SCH ×3 (09:03→16:56)
[2021-06-03] MEDS: LOSARTAN POTASSIUM 25 MG TABLET PO SCH (09:03)
[2021-06-03] MEDS: METOPROLOL SUCCINATE 25 MG TAB.SR.24H PO SCH (09:04)
[2021-06-03] MEDS: HEPARIN SODIUM, PORCINE 5000 UNITS/1 ML VIAL SQ SCH ×2 (09:06→21:35)
[2021-06-03] MEDS: hydrALAZINE HCL 25 MG TABLET PO SCH ×3 (09:58→21:34)
[2021-06-03] MEDS: AMLODIPINE BESYLATE 10 MG TABLET PO SCH (09:58)
[2021-06-03 12:00] VITALS: BP 160/79
[2021-06-03 16:00] VITALS: BP 143/64
--- NOTE | 2021-06-03 18:53 | NUR ---
CHIEF ENVIRONMENTAL COMMITMENT OFFICER CLOSING NOTES PATIENT ASLEEP IN BED, A/O X2. NO SIGNS OF ACUTE DISTRESS NOTED. ON ROOM AIR, TOLERATING WELL, NO SOB NOTED. BREATHING EVEN AND UNLABORED. ON NURSING PROFESSOR WITH CURRENT READING OF NSR @75. NO C/O PAIN OR DISCOMFORT. IV ACCESS ON RAC #18G, INTACT AND PATENT, SL. SAFETY MEASURES MAINTAINED. BED LOCKED AND IN LOWEST POSITION, BED ALARM ON, SR UP X2, CALL LIGHT PLACED WITHIN EASY REACH. WILL ENDORSE TO NEXT SHIFT.
--- NOTE | 2021-06-03 19:25 | NUR ---
CIVIL CAD TECH OPENING NOTES PATIENT LAYING AWAKE IN BED. A/O X2. PATIENT WITH REGULAR AND UNLABORED BREATHING, ON ROOM AIR TOLERATED WELL. NO SIGNS AND SYMPTOMS OF DISCOMFORT AT THIS TIME. NO COMPLAINS OF PAIN OR DISCOMFORT AT THIS TIME. PATIENT ON TELE MONITOR READING SR @ 77 BPM. IV ACCESS RAC G #18 SL . IV ACCESS PATENT AND INTACT. SAFETY PRECAUTIONS ENFORCED WITH BED LOCKED AND AT LOWEST POSITION. SIDERAILS UP X2. CALL LIGHT WITHIN REACH AT ALL TIMES. WILL CONTINUE TO MONITOR PATIENT.
[2021-06-03 20:00] VITALS: BP 152/77
[2021-06-04] VITALS: BP 128/46
[2021-06-04 04:00] VITALS: BP 148/81
[2021-06-04] MEDS: LEVETIRACETAM (500MG) 500 MG in IV NS 0.9% 100 ML IV SCH (04:23)
[2021-06-04] MEDS: hydrALAZINE HCL 25 MG TABLET PO SCH ×3 (04:24→21:00)
--- NOTE | 2021-06-04 07:06 | NUR ---
COMMERCIAL REAL ESTATE APPRAISER CLOSING NOTES PATIENT STILL LAYING AWAKE IN BED. A/O X2. PATIENT WITH REGULAR AND UNLABORED BREATHING, ON ROOM AIR TOLERATED WELL. NO SIGNS AND SYMPTOMS OF DISCOMFORT AT THIS TIME. NO COMPLAINS OF PAIN OR DISCOMFORT AT THIS TIME. PATIENT ON TELE MONITOR READING SR @ 77 BPM. IV ACCESS RAC G #18 SL . IV ACCESS PATENT AND INTACT. SAFETY PRECAUTIONS ENFORCED WITH BED LOCKED AND AT LOWEST POSITION. SIDERAILS UP X2. CALL LIGHT WITHIN REACH AT ALL TIMES. WILL ENDORSE CONTINUITY OF CARE TO DAY SHIFT NURSE.
--- NOTE | 2021-06-04 07:20 | NUR ---
VISUAL DESIGNER OPENING NOTES RECEIVED PATIENT RESTING IN BED, VERBALLY RESPONSIVE, A/O X2. NO SIGNS OF ACUTE DISTRESS NOTED. ON ROOM AIR, TOLERATING WELL, NO SOB NOTED. BREATHING EVEN AND UNLABORED. ON TRACTOR SWEEPER DRIVER WITH CURRENT READING OF NSR @ 68. DENIES ANY PAIN OR DISCOMFORT AT THIS TIME. IV ACCESS ON RAC #18G, INTACT AND PATENT, SL. SAFETY MEASURES IN PLACE. BED LOCKED AND IN LOWEST POSITION, BED ALARM ON, SR UP X2, CALL LIGHT PLACED WITHIN EASY REACH. WILL CONTINUE TO MONITOR.
[2021-06-04] MEDS: BLOOD SUGAR DIAGNOSTIC 1 EACH STRIP VI SCH ×4 (07:28→21:46)
[2021-06-04 08:00] VITALS: BP 145/70
[2021-06-04] MEDS: METFORMIN 500 MG TABLET PO SCH ×2 (08:14→17:00)
[2021-06-04] MEDS: LOSARTAN POTASSIUM 25 MG TABLET PO SCH (08:14)
[2021-06-04] MEDS: RANOLAZINE 500 MG TAB.ER.12H PO SCH ×2 (08:14→17:05)
[2021-06-04] MEDS: AMLODIPINE BESYLATE 10 MG TABLET PO SCH (08:15)
[2021-06-04] MEDS: METOPROLOL SUCCINATE 25 MG TAB.SR.24H PO SCH (08:15)
[2021-06-04] MEDS: LINAGLIPTIN 5 MG TABLET PO SCH (08:15)
[2021-06-04] MEDS: GEMFIBROZIL 600 MG TABLET PO SCH (08:15)
[2021-06-04] MEDS: HEPARIN SODIUM, PORCINE 5000 UNITS/1 ML VIAL SQ SCH ×2 (08:39→21:48)
--- NOTE | 2021-06-04 09:04 | NUR ---
WOUND CARE CONSULT: PT REFUSED FULL SKIN ASSESSMENT AND STATES HAS FRAGILE SKIN ON HANDS AND ARMS. DISCOLORATION NOTED TO HANDS AND DRY DRESSINGS NOTED TO BILATERAL WRISTS. RECOMMENDATIONS MADE FOR SKIN PROTECTION AND WOUND CARE. DISCUSSED WITH NURSING STAFF. MD IN AGREEMENT WITH PLAN OF CARE.
[2021-06-04 09:31] LABS: ALANINE AMINOTRANSFERASE 17 U/L (12-78); ALBUMIN 3.5 g/dL (3.4-5.0); ALKALINE PHOSPHATASE 86 U/L (46-116); ASPARTATE AMINOTRANSFERASE 16 U/L (15-37); BILIRUBIN,TOTAL 1.1 mg/dL (0.2-1.0); CALCIUM, SERUM 8.7 mg/dL (8.5-10.1); CARBON DIOXIDE 28 mmol/L (21-32); CHLORIDE 106 mmol/L (98-107); CREATININE 1.9 mg/dL (0.6-1.3); GLUCOSE 99 mg/dL (74-106); POTASSIUM 3.4 mmol/L (3.5-5.1); SODIUM SERUM 141 mmol/L (136-145); TOTAL PROTEIN, SERUM 6.3 g/dL (6.4-8.2); UREA NITROGEN, BLOOD 21 mg/dL (7-18)
[2021-06-04 12:00] VITALS: BP 145/64
[2021-06-04 16:00] VITALS: BP 127/61
[2021-06-04] MEDS ORDERED: IV NS 0.9% 250 ML IV ONE (16:19)
[2021-06-04] MEDS ORDERED: IOHEXOL-300 100 ML VIAL IV ONE (16:19)
--- NOTE | 2021-06-04 16:40 | NUR ---
RN NOTES PATIENT P/U BY GAMBLING DEALER FOR CT HEAD WWO CONTRAST, IN STABLE CONDITION.
--- NOTE | 2021-06-04 17:00 | NUR ---
RN NOTES PATIENT BACK FROM PROCEDURE OF CT SCAN HEAD WWO CONTRAST. PER TECT PATIENT NEED METFORMIN TO BE HELD X 48 HOURS.
[2021-06-04] MEDS: LEVETIRACETAM (250 MG) 250 MG TABLET PO SCH (17:05)
--- NOTE | 2021-06-04 18:48 | NUR ---
WOOD LATHE OPERATOR CLOSING NOTES PATIENT ASLEEP IN BED. NO SIGNS OF ACUTE DISTRESS NOTED. ON ROOM AIR, TOLERATING WELL, NO SOB NOTED. BREATHING EVEN AND UNLABORED. ON LUMBER CARRIER WITH CURRENT READING OF NSR @70'S. NO C/O PAIN OR DISCOMFORT. IV ACCESS ON RAC #18G, INTACT AND PATENT, SL. SAFETY MEASURES MAINTAINED. BED LOCKED AND IN LOWEST POSITION, BED ALARM ON, SR UP X2, CALL LIGHT PLACED WITHIN EASY REACH. WILL ENDORSE TO NEXT SHIFT.
--- NOTE | 2021-06-04 19:26 | NUR ---
ANIMAL TECHNICIAN OPENING NOTES PATIENT ASLEEP IN BED. NO SIGNS OF ACUTE DISTRESS NOTED. ON ROOM AIR, TOLERATING WELL, NO SOB NOTED. BREATHING EVEN AND UNLABORED. ON BANDING MACHINE OPERATOR WITH CURRENT READING OF NSR @70'S. NO C/O PAIN OR DISCOMFORT. IV ACCESS ON RAC #18G, INTACT AND PATENT, SL. SAFETY MEASURES MAINTAINED. BED LOCKED AND IN LOWEST POSITION, BED ALARM ON, SR UP X2, CALL LIGHT PLACED WITHIN EASY REACH. WILL CONTINUE TO MONITOR.
[2021-06-04 20:00] VITALS: BP 124/58
[2021-06-05] VITALS (7 sets, daily range): BP systolic 119–157; BP diastolic 56–83
[2021-06-05] MEDS: LEVETIRACETAM (250 MG) 250 MG TABLET PO SCH ×2 (05:06→17:51)
[2021-06-05] MEDS: hydrALAZINE HCL 25 MG TABLET PO SCH ×3 (05:06→21:46)
[2021-06-05 06:31] LABS: BASOPHILS % (AUTO) 0.7 % (0.0-2.0); EOSINOPHILS % (AUTO) 2.5 % (0.0-6.0); HEMATOCRIT 31 % (39-51); HEMOGLOBIN 10.6 g/dL (13.5-17.5); LYMPHOCYTES # (AUTO) 0.5 K/uL (0.8-4.8); LYMPHOCYTES % (AUTO) 8.8 % (20.0-44.0); MEAN CORPUSCULAR HGB CONC 34 g/dl (31.0-36.0); MEAN CORPUSCULAR VOLUME 83 fL (80-96); MONOCYTES # (AUTO) 0.4 K/uL (0.1-1.30); MONOCYTES % (AUTO) 7.4 % (2.0-12.0); NEUTROPHILS # (AUTO) 4.9 K/uL (1.8-8.9); NEUTROPHILS % (AUTO) 80.6 % (43.0-81.0); PLATELET COUNT (AUTO) 226 K/uL (150-450); RED BLOOD CELL COUNT(AUTO) 3.71 MIL/uL (4.5-6.0)
--- NOTE | 2021-06-05 06:55 | NUR ---
METAL FABRICATOR CLOSING NOTES PATIENT ASLEEP IN BED. NO SIGNS OF ACUTE DISTRESS NOTED. ON ROOM AIR, TOLERATING WELL, NO SOB NOTED. BREATHING EVEN AND UNLABORED. ON GROUND OPERATIONS CREW MEMBER WITH CURRENT READING OF NSR @70'S. NO C/O PAIN OR DISCOMFORT. IV ACCESS ON RAC #18G, INTACT AND PATENT, SL. SAFETY MEASURES MAINTAINED. BED LOCKED AND IN LOWEST POSITION, BED ALARM ON, SR UP X2, CALL LIGHT PLACED WITHIN EASY REACH. WILL ENDORSE CARE TO DAY SHIFT NURSE.
[2021-06-05 07:14] LABS: ALANINE AMINOTRANSFERASE 14 U/L (12-78); ALBUMIN 3.3 g/dL (3.4-5.0); ALKALINE PHOSPHATASE 79 U/L (46-116); ASPARTATE AMINOTRANSFERASE 13 U/L (15-37); BILIRUBIN,TOTAL 0.9 mg/dL (0.2-1.0); CALCIUM, SERUM 8.7 mg/dL (8.5-10.1); CARBON DIOXIDE 26 mmol/L (21-32); CHLORIDE 105 mmol/L (98-107); CREATININE 1.8 mg/dL (0.6-1.3); GLUCOSE 89 mg/dL (74-106); POTASSIUM 3.4 mmol/L (3.5-5.1); SODIUM SERUM 142 mmol/L (136-145); TOTAL PROTEIN, SERUM 6.1 g/dL (6.4-8.2); UREA NITROGEN, BLOOD 22 mg/dL (7-18)
--- NOTE | 2021-06-05 07:45 | NUR ---
RN OPENING NOTES PATIENT AWAKE IN BED RESTING. A/O X4. NO S/S OF PAIN NOTED AT THIS TIME. ON ROOM AIR, NO DISTRESS OR SHORTNESS OF BREATH NOTED. IV RAC #18G INTACT, PATENT AND FLUSHING WELL. PATIENT HAS AN EXTERNAL CARTON LETTERING MACHINE OPERATOR, NO CARDIAC DISTRESS NOTED. FALL AND SAFETY MEASURES IN PLACE, BED ALARM ON, BED IN LOW AND LOCK POSITION, CALL LIGHT AND TABLE WITHIN EASY REACH SIDE RAILS UP X2. WILL CONTINUE TO MONITOR.
[2021-06-05] MEDS: AMLODIPINE BESYLATE 10 MG TABLET PO SCH (08:27)
[2021-06-05] MEDS: METOPROLOL SUCCINATE 25 MG TAB.SR.24H PO SCH (08:27)
[2021-06-05] MEDS: GEMFIBROZIL 600 MG TABLET PO SCH (08:27)
[2021-06-05] MEDS: LOSARTAN POTASSIUM 25 MG TABLET PO SCH (08:28)
[2021-06-05] MEDS: LINAGLIPTIN 5 MG TABLET PO SCH (08:29)
[2021-06-05] MEDS: RANOLAZINE 500 MG TAB.ER.12H PO SCH ×2 (08:30→17:51)
[2021-06-05] MEDS: HEPARIN SODIUM, PORCINE 5000 UNITS/1 ML VIAL SQ SCH ×2 (08:33→21:45)
[2021-06-05] MEDS: BLOOD SUGAR DIAGNOSTIC 1 EACH STRIP VI SCH ×4 (08:39→22:21)
[2021-06-05] MEDS: METFORMIN 500 MG TABLET PO SCH ×2 (08:40→17:00)
[2021-06-05] MEDS ORDERED: POTASSIUM CHLORIDE 10 MEQ TABLET.SA PO ONE (10:30)
--- NOTE | 2021-06-05 16:45 | NUR ---
IVANA called pt.'s brother, Wes Vanessa [phone] who requested to speak with SS. NO ANSWER. IVANA LEFT VOICEMAIL WITH CALL BACK NUMBER. SW WILL REMAIN AVAILABLE.
--- NOTE | 2021-06-05 19:00 | NUR ---
RN CLOSING NOTES PATIENT AWAKE IN BED RESTING. A/O X4. NO S/S OF PAIN NOTED AT THIS TIME. ON ROOM AIR, NO DISTRESS OR SHORTNESS OF BREATH NOTED. IV RAC #18G INTACT, PATENT AND FLUSHING WELL. PATIENT HAS AN EXTERNAL FACE HARDENER, NO CARDIAC DISTRESS NOTED. FALL AND SAFETY MEASURES IN PLACE, BED ALARM ON, BED IN LOW AND LOCK POSITION, CALL LIGHT AND TABLE WITHIN EASY REACH SIDE RAILS UP X2. WILL ENDORSE TO WORKERS COMPENSATION CLAIMS ANALYST.
--- NOTE | 2021-06-05 19:50 | NUR ---
JUICE TESTER OPENING NOTE PATIENT AWAKE IN BED, ALERT/ORIENTED X 3, PT ABLE TO MAKE NEEDS KNOWN. PT STABLE ON RA, NO S/S OF DISTRESS OR SOB NOTED, BREATHING EVEN AND UNLABORED. PT ON EXTERNAL AUDIOLOGY DIRECTOR READING SINUS RHYTHM. DRESSING ON BILATERAL FOREARMS CLEAN, DRY AND INTACT. IV ACCESS ON RAC #18G INTACT AND FLUSHING WELL. SAFETY MEASURES IN PLACE: CALL LIGHT WITHIN REACH, SIDE RAILS UP X 2, BED LOCKED IN LOW POSITION, BED ALARM ON. WILL CONTINUE TO MONITOR PATIENT
[2021-06-06] MEDS: hydrALAZINE HCL 25 MG TABLET PO SCH ×2 (05:28→12:31)
[2021-06-06] MEDS: LEVETIRACETAM (250 MG) 250 MG TABLET PO SCH (05:28)
[2021-06-06] MEDS: BLOOD SUGAR DIAGNOSTIC 1 EACH STRIP VI SCH ×2 (07:10→12:30)
[2021-06-06 07:13] LABS: BASOPHILS % (AUTO) 0.9 % (0.0-2.0); EOSINOPHILS % (AUTO) 3.7 % (0.0-6.0); HEMATOCRIT 31 % (39-51); HEMOGLOBIN 10.9 g/dL (13.5-17.5); LYMPHOCYTES # (AUTO) 0.5 K/uL (0.8-4.8); LYMPHOCYTES % (AUTO) 12.8 % (20.0-44.0); MEAN CORPUSCULAR HGB CONC 36 g/dl (31.0-36.0); MEAN CORPUSCULAR VOLUME 82 fL (80-96); MONOCYTES # (AUTO) 0.4 K/uL (0.1-1.30); NEUTROPHILS # (AUTO) 3.1 K/uL (1.8-8.9); NEUTROPHILS % (AUTO) 73.6 % (43.0-81.0); PLATELET COUNT (AUTO) 229 K/uL (150-450); RED BLOOD CELL COUNT(AUTO) 3.76 MIL/uL (4.5-6.0); WHITE BLOOD COUNT (AUTO) 4.2 K/uL (4.3-11.0)
--- NOTE | 2021-06-06 07:15 | NUR ---
BLINTZE ROLLER OPENING NOTE PATIENT AWAKE IN BED, ALERT/ORIENTED X 4, PT ABLE TO MAKE NEEDS KNOWN. PT STABLE ON RA, NO S/S OF DISTRESS OR SOB NOTED, BREATHING EVEN AND UNLABORED. PT ON EXTERNAL DRIER TAKE OFF TENDER READING SINUS RHYTHM. DRESSING ON BILATERAL FOREARMS CLEAN, DRY AND INTACT. IV ACCESS ON RAC #18G INTACT AND FLUSHING WELL. SAFETY MEASURES IN PLACE: CALL LIGHT WITHIN REACH, SIDE RAILS UP X 2, BED LOCKED IN LOW POSITION, BED ALARM ON. WILL CONTINUE TO MONITOR PATIENT
[2021-06-06 07:27] LABS: ALANINE AMINOTRANSFERASE 13 U/L (12-78); ALBUMIN 3.4 g/dL (3.4-5.0); ALKALINE PHOSPHATASE 83 U/L (46-116); ASPARTATE AMINOTRANSFERASE 14 U/L (15-37); BILIRUBIN,TOTAL 0.7 mg/dL (0.2-1.0); CALCIUM, SERUM 8.8 mg/dL (8.5-10.1); CARBON DIOXIDE 28 mmol/L (21-32); CHLORIDE 104 mmol/L (98-107); CREATININE 1.7 mg/dL (0.6-1.3); GLUCOSE 103 mg/dL (74-106); MAGNESIUM 2.2 mg/dL (1.8-2.4); PHOSPHORUS 3.8 mg/dL (2.5-4.9); POTASSIUM 3.7 mmol/L (3.5-5.1); SODIUM SERUM 140 mmol/L (136-145); TOTAL PROTEIN, SERUM 6.3 g/dL (6.4-8.2); UREA NITROGEN, BLOOD 18 mg/dL (7-18)
--- NOTE | 2021-06-06 07:39 | NUR ---
MARKETING RECRUITER CLOSING NOTE PATIENT AWAKE IN BED, ALERT/ORIENTED X 3, PT ABLE TO MAKE NEEDS KNOWN. PT STABLE ON RA, NO S/S OF DISTRESS OR SOB NOTED, BREATHING EVEN AND UNLABORED. PT ON EXTERNAL TRANSFUSION NURSE READING SINUS RHYTHM, HR: 66. DRESSING ON BILATERAL FOREARMS CLEAN, DRY AND INTACT.NO SIGNIFICANT CHANGES THROUGHOUT SHIFT, MEDICATIONS GIVEN ORDERED. SAFETY MEASURES IN PLACE: CALL LIGHT WITHIN REACH, SIDE RAILS UP X 2, BED LOCKED IN LOW POSITION, BED ALARM ON. ENDORSED TO DAY SHIFT NURSE FOR CONTINUITY OF CARE
[2021-06-06 08:00] VITALS: BP 141/72
[2021-06-06] MEDS: HEPARIN SODIUM, PORCINE 5000 UNITS/1 ML VIAL SQ SCH (09:42)
[2021-06-06] MEDS: GEMFIBROZIL 600 MG TABLET PO SCH (09:46)
[2021-06-06] MEDS: METFORMIN 500 MG TABLET PO SCH (09:47)
[2021-06-06] MEDS: AMLODIPINE BESYLATE 10 MG TABLET PO SCH (09:47)
[2021-06-06] MEDS: RANOLAZINE 500 MG TAB.ER.12H PO SCH (09:47)
[2021-06-06] MEDS: LOSARTAN POTASSIUM 25 MG TABLET PO SCH (09:47)
[2021-06-06] MEDS: LINAGLIPTIN 5 MG TABLET PO SCH (09:48)
[2021-06-06] MEDS: METOPROLOL SUCCINATE 25 MG TAB.SR.24H PO SCH (09:48)
[2021-06-06 12:00] VITALS: BP 155/75
[2021-06-06] MEDS ORDERED: LEVE250T2 PO (12:15)
[2021-06-06] MEDS ORDERED: AMLO-213 PO (12:15)
[2021-06-06] MEDS ORDERED: HYDR-4076 PO (12:15)
[2021-06-06 12:31] VITALS: BP 144/73
== END 2021-06-06 13:20 | disposition home or self-care (01) | DRG 304 ==
LOC: ER 12:29 → TRANSITION 14:23 → TELE 19:34
PROVIDERS: ADMIT Internal Medicine; ATTEND Registered Nurse
DX: I16.1 Hypertensive emergency (principal); N17.0 Acute kidney failure with tubular necrosis; G93.41 Metabolic encephalopathy; E11.65 Type 2 diabetes mellitus with hyperglycemia; E87.6 Hypokalemia; D64.9 Anemia, unspecified; E78.5 Hyperlipidemia, unspecified; Z85.46 Personal history of malignant neoplasm of prostate; Z90.2 Acquired absence of lung [part of]; E11.42 Type 2 diabetes mellitus with diabetic polyneuropathy; Z85.118 Personal history of other malignant neoplasm of bronchus and lung; Z79.84 Long term (current) use of oral hypoglycemic drugs; I12.9 Hypertensive chronic kidney disease with stage 1 through stage 4 chronic kidney disease, or unspecified chronic kidney disease; N18.9 Chronic kidney disease, unspecified; E86.0 Dehydration; Z20.822 Contact with and (suspected) exposure to COVID-19
CPT/HCPCS: 36415; 70450-TC; 70470-TC; 71045-TC; 76770-TC; 80048-TC; 80053-TC; 81001; 82140-TC; 82962-TC; 83605-TC; 83735-TC; 84100-TC; 84443-TC; 84484-TC; 85025-TC; 85730-TC; 87081-TC; 92521; 92526; 95819-TC; 97116-TC; 97530-TC; G0378; J0360; J1644; J1815; J1953; J3480; J3490; J7030; J7050; Q9967

== ENCOUNTER 2023-01-30 12:19 | Inpatient (IN) | payer MEDICARE, OTHER ==
[~2023-01-30] VITALS: Ht 172.7 cm; Wt 66.2 kg
[~2023-01-30 12:19] MED LIST changes: +AMLO-213 PO; +HYDR-4076 PO; +LEVE250T2 PO
[2023-01-30] MEDS ORDERED: IV NS 0.9% 1,000 ML BAG IV ONE (13:00)
[2023-01-30 13:20] LABS: BASOPHILS % (AUTO) 0.4 % (0.0-2.0); EOSINOPHILS % (AUTO) 0.6 % (0.0-6.0); HEMATOCRIT 23 % (39-51); HEMOGLOBIN 7.5 g/dL (13.5-17.5); LYMPHOCYTES # (AUTO) 0.3 K/uL (0.8-4.8); LYMPHOCYTES % (AUTO) 4.7 % (20.0-44.0); MEAN CORPUSCULAR HEMOGLOBIN 26 PG (26.0-33.0); MEAN CORPUSCULAR HGB CONC 33 g/dl (31.0-36.0); MEAN CORPUSCULAR VOLUME 80 fL (80-96); MONOCYTES # (AUTO) 0.4 K/uL (0.1-1.30); MONOCYTES % (AUTO) 5.9 % (2.0-12.0); NEUTROPHILS # (AUTO) 6.3 K/uL (1.8-8.9); NEUTROPHILS % (AUTO) 88.4 % (43.0-81.0); PLATELET COUNT (AUTO) 262 K/uL (150-450); RED BLOOD CELL COUNT(AUTO) 2.88 MIL/uL (4.5-6.0); RED CELL DISTRIBUTION WIDTH 19.3 % (11.5-15.0); WHITE BLOOD COUNT (AUTO) 7.2 K/uL (4.3-11.0)
[2023-01-30 13:26] LABS: CALCIUM, SERUM 8.3 mg/dL (8.5-10.1); CARBON DIOXIDE 21 mmol/L (21-32); CHLORIDE 109 mmol/L (98-107); CREATININE 1.8 mg/dL (0.6-1.3); GLUCOSE 121 mg/dL (74-106); POTASSIUM 4.7 mmol/L (3.5-5.1); SODIUM SERUM 141 mmol/L (136-145); UREA NITROGEN, BLOOD 30 mg/dL (7-18)
[2023-01-30 13:32] LABS: ALANINE AMINOTRANSFERASE 50 U/L (12-78); ALBUMIN 2.8 g/dL (3.4-5.0); ALKALINE PHOSPHATASE 210 U/L (46-116); ASPARTATE AMINOTRANSFERASE 46 U/L (15-37); BILIRUBIN,DIRECT 0.1 mg/dL (0.0-0.2); BILIRUBIN,TOTAL 0.4 mg/dL (0.2-1.0); TOTAL PROTEIN, SERUM 6.9 g/dL (6.4-8.2)
[2023-01-30] MEDS ORDERED: TIOT4MIS3 IH (14:12)
[2023-01-30] MEDS ORDERED: ALBU18HF2 IH (14:12)
[2023-01-30] MEDS ORDERED: DENO120V IJ (14:12)
[2023-01-30] MEDS ORDERED: CARV6.252 PO (14:12)
[2023-01-30] MEDS ORDERED: APAL60TA PO (14:12)
[2023-01-30] MEDS ORDERED: MAG HYDROX/AL HYDROX/SIMETH 30 ML UDC PO PRN (15:00)
[2023-01-30] MEDS ORDERED: ACETAMINOPHEN 325 MG TABLET PO PRN (15:00)
[2023-01-30] MEDS ORDERED: Z GUARD REMEDY 4 OZ OINT TP PRN (15:00)
[2023-01-30] MEDS ORDERED: ONDANSETRON HCL/PF 4 MG/2 ML VIAL IVP PRN (15:00)
[2023-01-30] MEDS ORDERED: MAGNESIUM HYDROXIDE 30 ML UDC PO PRN (15:00)
[2023-01-30] MEDS ORDERED: ZOLPIDEM TARTRATE 5 MG TABLET PO PRN (15:00)
[2023-01-30 16:00] VITALS: BP 124/65; TEMP 99.3; O2SAT 98
[2023-01-30] MEDS ORDERED: ALBUTEROL FS 2.5 MG/3 ML VIAL.NEB NEB PRN (16:00)
[2023-01-30] MEDS ORDERED: DENOSUMAB 120 MG IJ SCH (16:00)
[2023-01-30] MEDS: IV NS 0.9% 1,000 ML IV PRN (17:20)
[2023-01-30] MEDS: CARVEDILOL 6.25 MG TABLET PO SCH (17:47)
[2023-01-30 20:00] VITALS: BP 131/56; TEMP 99.9; O2SAT 96
[2023-01-30 20:17] LABS: APPEARANCE,URINE CLEAR (CLEAR); BILIRUBIN,URINE NEGATIVE (NEGATIVE); BLOOD, URINE NEGATIVE Ery/uL (NEGATIVE); COLOR,URINE YELLOW (YELLOW); KETONES,URINE NEGATIVE (NEGATIVE); LEUKOCYTE ESTERASE ,URINE NEGATIVE (NEGATIVE); NITRITE, URINE NEGATIVE (NEGATIVE); PROTEIN,URINE 1+ mg/dl (NEGATIVE); UGLUCOSE NEGATIVE (NEGATIVE); UROBILINOGEN,URINE 0.2 EU/dL (0.2)
[2023-01-30 20:48] LABS: ADD URINE CULTURE NO; BACTERIA,URINE Few /HPF (None Seen); COARSE GRANULAR CASTS,URINE Few /LPF (None Seen); RBC,URINE 0-2 /HPF (0-2); SQUAMOUS EPITHELIAL CELL,UR Few /HPF (None Seen); WBC,URINE 0-2 /HPF (0-3)
[2023-01-30 21:05] LABS: OCCULT BLOOD STOOL NEGATIVE (NEGATIVE)
[2023-01-31] VITALS (18 sets, daily range): BP systolic 108–143; BP diastolic 54–73; TEMP 96–100.4; O2SAT 94–100
[2023-01-31] MEDS: ALBUTEROL FS 2.5 MG/0.5 ML VIAL.NEB NEB SCH ×5 (00:44→20:12)
[2023-01-31] MEDS: IPRATROPIUM NEB FS 0.5 MG/2.5 ML AMPUL.NEB NEB SCH ×5 (00:44→20:12)
[2023-01-31] MEDS: IV NS 0.9% 1,000 ML IV PRN ×2 (03:53→19:18)
[2023-01-31 07:24] LABS: CALCIUM, SERUM 7.6 mg/dL (8.5-10.1); CARBON DIOXIDE 18 mmol/L (21-32); CHLORIDE 112 mmol/L (98-107); CREATININE 1.6 mg/dL (0.6-1.3); GLUCOSE 104 mg/dL (74-106); MAGNESIUM 2.1 mg/dL (1.8-2.4); PHOSPHORUS 2.5 mg/dL (2.5-4.9); POTASSIUM 4.7 mmol/L (3.5-5.1); SODIUM SERUM 140 mmol/L (136-145); UREA NITROGEN, BLOOD 27 mg/dL (7-18)
[2023-01-31 07:25] LABS: BASOPHILS % (AUTO) 0.3 % (0.0-2.0); CHOLESTEROL 179 mg/dL (<200); EOSINOPHILS # (AUTO) 0.1 K/uL (0.0-0.7); EOSINOPHILS % (AUTO) 0.9 % (0.0-6.0); HDL CHOLESTEROL 33 mg/dL (40-60); LDL 112 mg/dL (0-99); LYMPHOCYTES # (AUTO) 0.4 K/uL (0.8-4.8); LYMPHOCYTES % (AUTO) 5.7 % (20.0-44.0); MEAN CORPUSCULAR HEMOGLOBIN 27 PG (26.0-33.0); MEAN CORPUSCULAR HGB CONC 33 g/dl (31.0-36.0); MEAN CORPUSCULAR VOLUME 80 fL (80-96); MONOCYTES # (AUTO) 0.5 K/uL (0.1-1.30); MONOCYTES % (AUTO) 7.1 % (2.0-12.0); NEUTROPHILS # (AUTO) 6.1 K/uL (1.8-8.9); PLATELET COUNT (AUTO) 233 K/uL (150-450); RED BLOOD CELL COUNT(AUTO) 2.52 MIL/uL (4.5-6.0); RED CELL DISTRIBUTION WIDTH 18.5 % (11.5-15.0); TRIGLYCERIDES 112 mg/dL (30-150); WHITE BLOOD COUNT (AUTO) 7.1 K/uL (4.3-11.0)
[2023-01-31 07:49] LABS: HEMATOCRIT 20 % (39-51); HEMOGLOBIN 6.7 g/dL (13.5-17.5); IRON, SERUM 11 ug/dl (50-175); TOTAL IRON BINDING CAPACITY 92 ug/dl (250-450)
[2023-01-31] MEDS ORDERED: APALUTAMIDE 60 MG PO SCH (09:00)
[2023-01-31] MEDS: CARVEDILOL 6.25 MG TABLET PO SCH ×2 (09:00→16:07)
[2023-01-31 11:02] LABS: EOSINOPHILS % (MANUAL) 1 % (0-4); LYMPHOCYTES % (MANUAL) 3 % (16-48); MONOCYTES % (MANUAL) 8 % (0-11.0); NEUTROPHILS % (MANUAL) 88 (42-76); PLATELET ESTIMATE ADEQUATE
[2023-01-31 11:03] LABS: ANISOCYTOSIS 2+
[2023-01-31 11:04] LABS: OVALOCYTES 1+
[2023-01-31] MEDS: FERROUS SULFATE (325 MG) 325 MG/TAB TABLET PO SCH ×2 (11:21→16:07)
[2023-02-01] VITALS (8 sets, daily range): BP systolic 129–156; BP diastolic 55–67; TEMP 98–99.9; O2SAT 92–100
[2023-02-01] MEDS: IPRATROPIUM NEB FS 0.5 MG/2.5 ML AMPUL.NEB NEB SCH ×3 (00:37→13:30)
[2023-02-01] MEDS: ALBUTEROL FS 2.5 MG/0.5 ML VIAL.NEB NEB SCH ×3 (00:37→13:30)
[2023-02-01] MEDS: IV NS 0.9% 1,000 ML IV PRN (05:16)
[2023-02-01 07:41] LABS: BASOPHILS % (AUTO) 0.3 % (0.0-2.0); EOSINOPHILS % (AUTO) 0.6 % (0.0-6.0); HEMATOCRIT 24 % (39-51); HEMOGLOBIN 7.9 g/dL (13.5-17.5); LYMPHOCYTES # (AUTO) 0.4 K/uL (0.8-4.8); MEAN CORPUSCULAR HEMOGLOBIN 27 PG (26.0-33.0); MEAN CORPUSCULAR HGB CONC 33 g/dl (31.0-36.0); MEAN CORPUSCULAR VOLUME 80 fL (80-96); MONOCYTES # (AUTO) 0.5 K/uL (0.1-1.30); MONOCYTES % (AUTO) 6.6 % (2.0-12.0); NEUTROPHILS # (AUTO) 6.3 K/uL (1.8-8.9); NEUTROPHILS % (AUTO) 87.5 % (43.0-81.0); PLATELET COUNT (AUTO) 234 K/uL (150-450); RED BLOOD CELL COUNT(AUTO) 2.97 MIL/uL (4.5-6.0); RED CELL DISTRIBUTION WIDTH 18.2 % (11.5-15.0); WHITE BLOOD COUNT (AUTO) 7.2 K/uL (4.3-11.0)
[2023-02-01 08:01] LABS: CALCIUM, SERUM 7.4 mg/dL (8.5-10.1); CARBON DIOXIDE 16 mmol/L (21-32); CHLORIDE 114 mmol/L (98-107); CREATININE 1.4 mg/dL (0.6-1.3); GLUCOSE 96 mg/dL (74-106); MAGNESIUM 2.1 mg/dL (1.8-2.4); POTASSIUM 4.4 mmol/L (3.5-5.1); SODIUM SERUM 141 mmol/L (136-145); UREA NITROGEN, BLOOD 21 mg/dL (7-18)
[2023-02-01] MEDS: CARVEDILOL 6.25 MG TABLET PO SCH (09:45)
[2023-02-01] MEDS: FERROUS SULFATE (325 MG) 325 MG/TAB TABLET PO SCH (09:46)
[2023-02-01] MEDS ORDERED: FERR325T28 PO (12:36)
== END 2023-02-01 14:30 | disposition home or self-care (01) | DRG 73 ==
LOC: ER 12:22 → TELE 15:36
PROVIDERS: ADMIT Nurse Practitioner Acute Care; ATTEND Nurse Practitioner Acute Care
PROC: 30233N1 Transfusion of Nonautologous Red Blood Cells into Peripheral Vein, Percutaneous Approach (ICD-10-PCS; principal; 2023-01-31)
DX: G90.8 Other disorders of autonomic nervous system (principal); E43 Unspecified severe protein-calorie malnutrition; N17.0 Acute kidney failure with tubular necrosis; D62 Acute posthemorrhagic anemia; E87.20 Acidosis, unspecified; J96.10 Chronic respiratory failure, unspecified whether with hypoxia or hypercapnia; I12.9 Hypertensive chronic kidney disease with stage 1 through stage 4 chronic kidney disease, or unspecified chronic kidney disease; E11.22 Type 2 diabetes mellitus with diabetic chronic kidney disease; J44.9 Chronic obstructive pulmonary disease, unspecified; Z85.46 Personal history of malignant neoplasm of prostate; Z90.79 Acquired absence of other genital organ(s); Z85.118 Personal history of other malignant neoplasm of bronchus and lung; E78.00 Pure hypercholesterolemia, unspecified; Z88.8 Allergy status to other drugs, medicaments and biological substances; Z79.51 Long term (current) use of inhaled steroids; Z90.2 Acquired absence of lung [part of]; Z79.899 Other long term (current) drug therapy; E88.09 Other disorders of plasma-protein metabolism, not elsewhere classified; N18.32 Chronic kidney disease, stage 3b; Z79.4 Long term (current) use of insulin; Z68.22 Body mass index [BMI] 22.0-22.9, adult; D63.8 Anemia in other chronic diseases classified elsewhere; R33.9 Retention of urine, unspecified; Z96.82 Presence of neurostimulator; D50.9 Iron deficiency anemia, unspecified
CPT/HCPCS: 36415; 71045-TC; 76770-TC; 80048-TC; 80061-TC; 80076-TC; 81001; 82272-TC; 82962-TC; 83540-TC; 83735-TC; 84100-TC; 84484-TC; 85025-TC; 86850-TC; 93307-TC; 94799-TC; 97116-TC; 97530-TC; A4223; G0378; J7030; J7040; P9016